=== PATIENT | male | born 1975 | race Two or more races ===

== ENCOUNTER 2023-11-12 13:14 | Emergency (ER) | payer SELFPAY ==
[2023-11-12 13:20] VITALS: BP 116/82; PULSE 97; RESP 18; TEMP 98.8; BMI 31.8
== END 2023-11-12 15:50 | disposition home or self-care (01) ==
LOC: JER 13:14
DX: R00.2 Palpitations (principal); I10 Essential (primary) hypertension; F17.200 Nicotine dependence, unspecified, uncomplicated
CPT/HCPCS: 93005; 93010; 99283-25